=== PATIENT | female | born 1930 | race African-American/Black ===

== ENCOUNTER 2017-09-12 19:22 | Inpatient (IN) | payer MEDICARE, BC ==
[~2017-09-12] VITALS: Ht 175.3 cm; Wt 74.4 kg
[~2017-09-12 19:22] MED LIST: FERR-63 PO
[2017-09-12] MEDS ORDERED: SODIUM CHLORIDE 0.9% 1,000 ML IV ONE (20:05)
[2017-09-12 20:31] LABS: BASOPHILS % 0.6 % (0.0-2.0); EOSINOPHILS % 2.5 % (0.0-5.0); HEMATOCRIT. 34.1 % (36.0-48.0); HEMOGLOBIN. 10.7 g/dL (12.0-16.0); LYMPHOCYTES % 16.2 % (20.0-50.0); MEAN CORPUSCULAR HEMOGLOBIN 24.8 pg (28.0-32.0); MEAN PLATELET VOLUME 8.3 fl (7.4-10.4); MONOCYTES % 14.8 % (2.0-8.0); NEUTROPHILS % 65.9 % (40.0-76.0); PLATELET 260 x1000/uL (130-400); RED BLOOD CELL COUNT 4.33 mill/uL (4.2-5.4); RED CELL DISTRIBUTION WIDTH 15.5 % (11.6-14.6)
[2017-09-12 20:35] LABS: PROTHROMBIN TIME 10.9 sec (9.4-11.6)
[2017-09-12 20:41] LABS: CHLORIDE 111 mEq/L (98-107)
[2017-09-12 21:47] LABS: CLARITY URINE CLOUDY (CLEAR); COLOR URINE YELLOW (YELLOW); KETONES URINE NEGATIVE (NEGATIVE); LEUKOCYTE ESTERASE URINE 3+ (NEGATIVE); NITRITE URINE POSITIVE (NEGATIVE); OCCULT BLOOD URINE 1+ (NEGATIVE); PROTEIN URINE 1+ (NEGATIVE)
[2017-09-13] VITALS (7 sets, daily range): BP systolic 130–169; BP diastolic 48–71
[2017-09-13] MEDS ORDERED: CEFTRIAXONE 1 G PREMIX 50 ML IV ONE
[2017-09-13] MEDS ORDERED: SODIUM CHLORIDE 0.9% 1,000 ML IV SCH (00:19)
[2017-09-13] MEDS ORDERED: KETOROLAC 30MG/ML VIAL IV ONE (00:30)
[2017-09-13] MEDS ORDERED: CLONIDINE 0.1MG TABLET PO ONE (01:30)
[2017-09-13] MEDS ORDERED: ACETAMINOPHEN WITH CODEINE 300/30MG TABLET PO ONE (01:30)
[2017-09-13] MEDS ORDERED: CLONIDINE 0.1MG TABLET PO SCH (02:00)
[2017-09-13] MEDS ORDERED: ACETAMINOPHEN 325MG TABLET PO PRN (04:30)
[2017-09-13] MEDS ORDERED: CEPH500T PO (05:03)
[2017-09-13] MEDS ORDERED: ASPI-1079 PO (05:03)
[2017-09-13] MEDS ORDERED: FERR-71 PO (05:03)
[2017-09-13] MEDS ORDERED: FURO-152 PO (05:03)
[2017-09-13] MEDS ORDERED: IBUP-2028 PO (05:03)
[2017-09-13] MEDS ORDERED: POTA10TA11 PO (05:03)
[2017-09-13] MEDS ORDERED: LOSA25TA12 PO (05:03)
[2017-09-13] MEDS ORDERED: AMLO5TAB4 PO (05:03)
[2017-09-13] MEDS ORDERED: ASCO500C18 PO (05:03)
[2017-09-13] MEDS ORDERED: AMLODIPINE 5MG TABLET PO SCH (05:36)
[2017-09-13] MEDS ORDERED: LOSARTAN POTASSIUM 50 MG TABLET PO SCH (05:37)
[2017-09-13] MEDS: SODIUM CHL 0.45% + KCL 20MEQ/L 1,000 ML IV SCH ×2 (06:28→20:00)
[2017-09-13 06:34] LABS: HEMATOCRIT. 30.9 % (36.0-48.0); HEMOGLOBIN. 9.7 g/dL (12.0-16.0); MEAN CORPUSCULAR HEMOGLOBIN 24.7 pg (28.0-32.0); MEAN CORPUSCULAR VOLUME 78.6 fL (81.0-99.0); MEAN PLATELET VOLUME 8.2 fl (7.4-10.4); PLATELET 224 x1000/uL (130-400); RED BLOOD CELL COUNT 3.93 mill/uL (4.2-5.4); RED CELL DISTRIBUTION WIDTH 15.7 % (11.6-14.6)
[2017-09-13 08:00] LABS: CHLORIDE 111 mEq/L (98-107)
[2017-09-13] MEDS: ENOXAPARIN 40MG/0.4ML SYR SUBCUT SCH (09:00)
[2017-09-13 11:42] LABS: TOTAL IRON BINDING CAPACITY 294 ug/dL (250-450)
[2017-09-13] MEDS ORDERED: FERROUS SULFATE 325MG TABLET PO SCH (13:00)
[2017-09-13 14:15] LABS: PLATELET ESTIMATE NORMAL
[2017-09-13] MEDS: CEFTRIAXONE 2 G in DEXTROSE 5% WATER 50 ML IV SCH (22:58)
[2017-09-14] VITALS (7 sets, daily range): BP systolic 124–165; BP diastolic 43–65
[2017-09-14] MEDS ORDERED: CEFTRIAXONE 2 G PREMIX 50 ML IV SCH
[2017-09-14] MEDS: CLONIDINE 0.1MG TABLET PO PRN (00:33)
[2017-09-14 06:06] LABS: BASOPHILS % 0.7 % (0.0-2.0); HEMATOCRIT. 29.2 % (36.0-48.0); HEMOGLOBIN. 9.1 g/dL (12.0-16.0); LYMPHOCYTES % 20.5 % (20.0-50.0); MEAN CORPUSCULAR HEMOGLOBIN 24.3 pg (28.0-32.0); MEAN CORPUSCULAR VOLUME 77.7 fL (81.0-99.0); MEAN PLATELET VOLUME 8.1 fl (7.4-10.4); MONOCYTES % 12.9 % (2.0-8.0); NEUTROPHILS % 61.9 % (40.0-76.0); PLATELET 219 x1000/uL (130-400); RED BLOOD CELL COUNT 3.76 mill/uL (4.2-5.4); RED CELL DISTRIBUTION WIDTH 15.1 % (11.6-14.6)
[2017-09-14 06:45] LABS: CHLORIDE 109 mEq/L (98-107)
[2017-09-14] MEDS: ENOXAPARIN 40MG/0.4ML SYR SUBCUT SCH (08:55)
[2017-09-14] MEDS: ASPIRIN 81MG TABLET PO SCH (08:55)
[2017-09-14] MEDS: AMLODIPINE 5MG TABLET PO SCH ×2 (08:56→20:08)
[2017-09-14] MEDS: LOSARTAN POTASSIUM 100 MG TABLET PO SCH (08:56)
[2017-09-14] MEDS: FERROUS SULFATE 325MG TABLET PO SCH ×2 (08:56→17:48)
[2017-09-14] MEDS: DOCUSATE SODIUM 250MG CAPSULE PO SCH (08:56)
[2017-09-14] MEDS ORDERED: AMLODIPINE 5MG TABLET PO SCH (09:00)
[2017-09-14] MEDS ORDERED: FERROUS SULFATE 325MG TABLET PO SCH (09:00)
[2017-09-14] MEDS ORDERED: LOSARTAN POTASSIUM 50 MG TABLET PO SCH (09:00)
[2017-09-14] MEDS ORDERED: LEVOFLOXACIN 500MG PREMIX 100 ML IV NR (10:00)
[2017-09-14] MEDS: SODIUM CHL 0.45% + KCL 20MEQ/L 1,000 ML IV SCH (10:49)
[2017-09-14] MEDS: POTASSIUM CHLORIDE INJ 20 MEQ in SODIUM CHLORIDE 0.45% 1,000 ML IV SCH (18:30)
[2017-09-14] MEDS: CEFTRIAXONE 2 G in DEXTROSE 5% WATER 50 ML IV SCH (22:25)
[2017-09-15 04:00] VITALS: BP 152/55
[2017-09-15] MEDS: POTASSIUM CHLORIDE INJ 20 MEQ in SODIUM CHLORIDE 0.45% 1,000 ML IV SCH (06:12)
[2017-09-15 06:45] LABS: BASOPHILS % 0.5 % (0.0-2.0); EOSINOPHILS % 3.7 % (0.0-5.0); HEMATOCRIT. 30.1 % (36.0-48.0); HEMOGLOBIN. 9.7 g/dL (12.0-16.0); MEAN CORPUSCULAR HEMOGLOBIN 25.1 pg (28.0-32.0); MEAN CORPUSCULAR VOLUME 77.9 fL (81.0-99.0); MEAN PLATELET VOLUME 8.3 fl (7.4-10.4); MONOCYTES % 14.3 % (2.0-8.0); NEUTROPHILS % 60.5 % (40.0-76.0); PLATELET 222 x1000/uL (130-400); RED BLOOD CELL COUNT 3.87 mill/uL (4.2-5.4); RED CELL DISTRIBUTION WIDTH 15.4 % (11.6-14.6)
[2017-09-15 07:16] LABS: CHLORIDE 109 mEq/L (98-107)
[2017-09-15 07:48] VITALS: BP 164/50
[2017-09-15] MEDS: LOSARTAN POTASSIUM 100 MG TABLET PO SCH (08:17)
[2017-09-15] MEDS: ASPIRIN 81MG TABLET PO SCH (08:17)
[2017-09-15] MEDS: FERROUS SULFATE 325MG TABLET PO SCH ×2 (08:17→17:10)
[2017-09-15] MEDS: AMLODIPINE 5MG TABLET PO SCH ×2 (08:18→20:40)
[2017-09-15] MEDS: ENOXAPARIN 40MG/0.4ML SYR SUBCUT SCH (08:19)
[2017-09-15] MEDS: DOCUSATE SODIUM 250MG CAPSULE PO SCH (08:19)
[2017-09-15] MEDS ORDERED: LEVOFLOXACIN 250MG PREMIX 50 ML IV SCH (10:00)
[2017-09-15 12:03] VITALS: BP 155/58
[2017-09-15] MEDS ORDERED: MEROPENEM 500 MG in SODIUM CHLORIDE 0.9% 50 ML IV SCH (15:00)
[2017-09-15 16:29] VITALS: BP 166/58
[2017-09-15] MEDS ORDERED: HYDROMORPHONE HCL/PF 2MG/ML CPJ IV NR (16:48)
[2017-09-15] MEDS: CLONIDINE 0.1MG TABLET PO PRN (16:49)
[2017-09-15 20:25] VITALS: BP 169/58
[2017-09-15] MEDS: MEROPENEM 500MG in NORMAL SALINE 50ML IV SCH (21:50)
[2017-09-16 00:14] VITALS: BP 138/59
[2017-09-16] MEDS: POTASSIUM CHLORIDE INJ 20 MEQ in SODIUM CHLORIDE 0.45% 1,000 ML IV SCH ×2 (01:37→11:35)
[2017-09-16 04:00] VITALS: BP 150/61
[2017-09-16 06:13] LABS: BASOPHILS % 0.8 % (0.0-2.0); EOSINOPHILS % 4.3 % (0.0-5.0); HEMATOCRIT. 31.3 % (36.0-48.0); LYMPHOCYTES % 20.8 % (20.0-50.0); MEAN CORPUSCULAR HEMOGLOBIN 25.2 pg (28.0-32.0); MEAN CORPUSCULAR VOLUME 78.5 fL (81.0-99.0); MONOCYTES % 13.6 % (2.0-8.0); NEUTROPHILS % 60.5 % (40.0-76.0); PLATELET 235 x1000/uL (130-400); RED BLOOD CELL COUNT 3.98 mill/uL (4.2-5.4); RED CELL DISTRIBUTION WIDTH 15.4 % (11.6-14.6)
[2017-09-16 06:40] LABS: CHLORIDE 108 mEq/L (98-107)
[2017-09-16] MEDS: AMLODIPINE 5MG TABLET PO SCH ×2 (08:08→21:22)
[2017-09-16] MEDS: LOSARTAN POTASSIUM 100 MG TABLET PO SCH (08:08)
[2017-09-16 08:51] VITALS: BP 104/54
[2017-09-16] MEDS: ASPIRIN 81MG TABLET PO SCH (11:21)
[2017-09-16] MEDS: FERROUS SULFATE 325MG TABLET PO SCH ×2 (11:21→17:27)
[2017-09-16] MEDS: MEROPENEM 500MG in NORMAL SALINE 50ML IV SCH ×2 (11:22→22:22)
[2017-09-16] MEDS: DOCUSATE SODIUM 250MG CAPSULE PO SCH (11:22)
[2017-09-16] MEDS: ENOXAPARIN 40MG/0.4ML SYR SUBCUT SCH (11:22)
[2017-09-16] MEDS: LIDOCAINE HCL 4% CREAM 76GM TUBE TP SCH ×2 (11:33→17:27)
[2017-09-16] MEDS: TRAMADOL HCL/ACETAMINOPHEN 37.5/325MG TABLET PO SCH ×2 (11:33→17:27)
[2017-09-16 12:26] VITALS: BP 136/57
[2017-09-16 16:05] VITALS: BP 155/59
[2017-09-16 20:06] VITALS: BP 134/47
[2017-09-17 00:19] VITALS: BP 160/58
[2017-09-17] MEDS: POTASSIUM CHLORIDE INJ 20 MEQ in SODIUM CHLORIDE 0.45% 1,000 ML IV SCH (02:59)
[2017-09-17 04:00] VITALS: BP 154/55
[2017-09-17] MEDS: LIDOCAINE HCL 4% CREAM 76GM TUBE TP SCH (06:05)
[2017-09-17] MEDS: TRAMADOL HCL/ACETAMINOPHEN 37.5/325MG TABLET PO SCH (06:05)
[2017-09-17 08:00] VITALS: BP 165/70
[2017-09-17] MEDS ORDERED: AMLODIPINE 2.5MG TABLET PO SCH (09:00)
[2017-09-17] MEDS: ASPIRIN 81MG TABLET PO SCH (09:14)
[2017-09-17] MEDS: LOSARTAN POTASSIUM 100 MG TABLET PO SCH (09:14)
[2017-09-17] MEDS: DOCUSATE SODIUM 250MG CAPSULE PO SCH (09:15)
[2017-09-17] MEDS: FERROUS SULFATE 325MG TABLET PO SCH (09:15)
[2017-09-17] MEDS: MEROPENEM 500MG in NORMAL SALINE 50ML IV SCH (09:15)
[2017-09-17] MEDS: ENOXAPARIN 40MG/0.4ML SYR SUBCUT SCH (09:16)
[2017-09-17 12:00] VITALS: BP 138/70
[2017-09-17 15:27] VITALS: BP 138/70
== END 2017-09-17 19:00 | DRG 445 ==
LOC: ER 19:59 → 6EST 09-13 00:23 → ENRESERV 09-13 02:36 → 6WST 09-13 13:19
PROVIDERS: ADMIT Internal Medicine Geriatric Medicine; ATTEND Internal Medicine Geriatric Medicine
DX: K80.20 Calculus of gallbladder without cholecystitis without obstruction (principal); N30.00 Acute cystitis without hematuria; N17.9 Acute kidney failure, unspecified; E46 Unspecified protein-calorie malnutrition; L03.115 Cellulitis of right lower limb; E87.1 Hypo-osmolality and hyponatremia; I13.0 Hypertensive heart and chronic kidney disease with heart failure and stage 1 through stage 4 chronic kidney disease, or unspecified chronic kidney disease; I50.9 Heart failure, unspecified; L03.116 Cellulitis of left lower limb; K80.10 Calculus of gallbladder with chronic cholecystitis without obstruction; N18.9 Chronic kidney disease, unspecified; E86.0 Dehydration; B96.20 Unspecified Escherichia coli [E. coli] as the cause of diseases classified elsewhere; B96.89 Other specified bacterial agents as the cause of diseases classified elsewhere; K57.90 Diverticulosis of intestine, part unspecified, without perforation or abscess without bleeding; N20.0 Calculus of kidney; K44.9 Diaphragmatic hernia without obstruction or gangrene; D50.9 Iron deficiency anemia, unspecified; D63.8 Anemia in other chronic diseases classified elsewhere; F03.90 Unspecified dementia, unspecified severity, without behavioral disturbance, psychotic disturbance, mood disturbance, and anxiety; I73.9 Peripheral vascular disease, unspecified; K59.09 Other constipation; M19.90 Unspecified osteoarthritis, unspecified site; Z90.710 Acquired absence of both cervix and uterus; Z88.2 Allergy status to sulfonamides; Z79.899 Other long term (current) drug therapy; Z68.24 Body mass index [BMI] 24.0-24.9, adult
CPT/HCPCS: 36415; 74176; 80048; 81001; 82270; 83036; 83540; 83550; 84443; 87077; 87186; 93970; 96361; 96374; 96375; 97116; 97162; 99285; A6261; J0696; J1170; J1650; J1885; J1956; J2185; J3480; J7030; J7060; A4315

== ENCOUNTER 2018-08-27 21:24 | Inpatient (IN) | payer BC, MEDICARE ==
[~2018-08-27] VITALS: Ht 167.6 cm; Wt 74.0 kg
[~2018-08-27 21:24] MED LIST changes: +AMLO5TAB4 PO; +ASCO500C18 PO; +ASPI-1079 PO; +CEPH500T PO; +FERR-71 PO; +FURO-152 PO; +IBUP-2028 PO; +LOSA25TA12 PO; +POTA10TA11 PO
[2018-08-27] MEDS ORDERED: ONDANSETRON HCL 4MG/2ML INJ IV ONE (22:45)
[2018-08-27 23:11] LABS: HEMOGLOBIN. 7.5 g/dL (12.0-16.0); MEAN CORPUSCULAR VOLUME 64.9 fL (81.0-99.0); MEAN PLATELET VOLUME 7.5 fl (7.4-10.4); PLATELET 355 x1000/uL (130-400); RED BLOOD CELL COUNT 4.15 mill/uL (4.2-5.4); RED CELL DISTRIBUTION WIDTH 20.2 % (11.6-14.6)
[2018-08-27 23:14] LABS: CHLORIDE 112 mEq/L (98-107)
[2018-08-27 23:15] LABS: PROTHROMBIN TIME 10.5 sec (9.1-11.1)
[2018-08-27 23:22] LABS: PLATELET ESTIMATE NORMAL
[2018-08-28 01:10] LABS: CLARITY URINE TURBID (CLEAR); COLOR URINE YELLOW (YELLOW); KETONES URINE TRACE (NEGATIVE); LEUKOCYTE ESTERASE URINE 3+ (NEGATIVE); NITRITE URINE NEGATIVE (NEGATIVE); OCCULT BLOOD URINE 2+ (NEGATIVE); PROTEIN URINE 1+ (NEGATIVE); SPECIFIC GRAVITY URINE 1.019 (1.005-1.030)
[2018-08-28] MEDS ORDERED: MEROPENEM 1,000 MG in SODIUM CHLORIDE 0.9% 100 ML IV SCH (02:15)
[2018-08-28] MEDS ORDERED: ENOXAPARIN 80MG/0.8ML SYR SUBCUT SCH (03:00)
[2018-08-28] MEDS ORDERED: IPRATROPIUM/ALBUTEROL 0.5-3(2.5)MG/3ML NEB INH PRN (05:45)
[2018-08-28] MEDS ORDERED: LORAZEPAM 2MG/ML CPJ IV PRN (05:45)
[2018-08-28] MEDS ORDERED: HYDROCODONE/ACETAMINOPHEN 5/325MG TABLET PO PRN (05:45)
[2018-08-28] MEDS ORDERED: MAGNESIUM/ALUMINUM HYDROXIDE/SIMETHICONE 30ML UDC PO PRN (05:45)
[2018-08-28] MEDS ORDERED: DIPHENHYDRAMINE 50MG/ML VIAL IV PRN (05:45)
[2018-08-28] MEDS ORDERED: ONDANSETRON HCL 4MG/2ML INJ IV PRN (05:45)
[2018-08-28] MEDS ORDERED: HYDROMORPHONE HCL/PF 2MG/ML CPJ IV PRN (05:45)
[2018-08-28] MEDS ORDERED: DOCUSATE SODIUM 100MG CAPSULE PO PRN (05:45)
[2018-08-28] MEDS ORDERED: GUAIFENESIN 200MG/10ML SUGAR FREE UDC PO PRN (05:45)
[2018-08-28] MEDS ORDERED: ACETAMINOPHEN 325MG TABLET PO PRN (05:45)
[2018-08-28] MEDS ORDERED: LEVOFLOXACIN 500MG PREMIX 100 ML IV SCH ×2 (06:00)
[2018-08-28 06:52] LABS: CHLORIDE 113 mEq/L (98-107)
[2018-08-28] MEDS: SODIUM CHLORIDE 0.45% 1,000 ML IV SCH (09:02)
[2018-08-28] MEDS ORDERED: NA PHOS,M-B/NA PHOS,DI-BA ENEMA 118ML PR PRN (10:00)
[2018-08-28 10:23] VITALS: BP 153/61
[2018-08-28] MEDS: ENOXAPARIN 40MG/0.4ML SYR SUBCUT SCH (11:45)
[2018-08-28 12:00] VITALS: BP 157/53
[2018-08-28 13:09] VITALS: BP 153/61
[2018-08-28] MEDS: ASPIRIN 81MG EC TABLET PO SCH (13:33)
[2018-08-28] MEDS: CLONIDINE 0.1MG TABLET PO PRN (17:39)
[2018-08-28 20:42] VITALS: BP 129/52
[2018-08-29] VITALS (10 sets, daily range): BP systolic 98–166; BP diastolic 57–97
[2018-08-29] MEDS: LEVOFLOXACIN 250MG PREMIX 50 ML IV SCH (05:26)
[2018-08-29] MEDS: SODIUM CHLORIDE 0.45% 1,000 ML IV SCH ×3 (05:27→18:28)
[2018-08-29] MEDS ORDERED: LEVOFLOXACIN 250MG PREMIX 50 ML IV SCH (06:00)
[2018-08-29 07:54] LABS: CHLORIDE 110 mEq/L (98-107)
[2018-08-29 08:10] LABS: LDL CHOLESTEROL 54 mg/dL (5-100)
[2018-08-29 08:14] LABS: HDL CHOLESTEROL 38 mg/dL (40-59)
[2018-08-29 08:23] LABS: BASOPHILS % 1.1 % (0.0-2.0); EOSINOPHILS % 2.6 % (0.0-5.0); HEMOGLOBIN. 7.8 g/dL (12.0-16.0); LYMPHOCYTES % 23.3 % (20.0-50.0); MEAN CORPUSCULAR HEMOGLOBIN 18.7 pg (28.0-32.0); MEAN PLATELET VOLUME 7.7 fl (7.4-10.4); MONOCYTES % 12.5 % (2.0-8.0); NEUTROPHILS % 60.5 % (40.0-76.0); PLATELET 283 x1000/uL (130-400); RED BLOOD CELL COUNT 4.18 mill/uL (4.2-5.4)
[2018-08-29] MEDS: ASPIRIN 81MG EC TABLET PO SCH (09:00)
[2018-08-29] MEDS: CLONIDINE 0.1MG TABLET PO PRN (12:55)
[2018-08-29] MEDS: ENOXAPARIN 40MG/0.4ML SYR SUBCUT SCH (12:56)
[2018-08-30] VITALS: BP 137/43
[2018-08-30 04:00] VITALS: BP 130/50
[2018-08-30] MEDS: LEVOFLOXACIN 250MG PREMIX 50 ML IV SCH (06:09)
[2018-08-30 07:43] VITALS: BP 149/73
[2018-08-30 08:28] LABS: HEMOGLOBIN. 8.2 g/dL (12.0-16.0); MEAN CORPUSCULAR HEMOGLOBIN 18.8 pg (28.0-32.0); MEAN CORPUSCULAR VOLUME 68.6 fL (81.0-99.0); MEAN PLATELET VOLUME 8.5 fl (7.4-10.4); PLATELET 248 x1000/uL (130-400); RED BLOOD CELL COUNT 4.38 mill/uL (4.2-5.4); RED CELL DISTRIBUTION WIDTH 22.2 % (11.6-14.6)
[2018-08-30 08:34] LABS: CHLORIDE 110 mEq/L (98-107)
[2018-08-30] MEDS: ENOXAPARIN 40MG/0.4ML SYR SUBCUT SCH ×2 (09:49→10:51)
[2018-08-30 11:26] LABS: PLATELET ESTIMATE NORMAL
[2018-08-30 12:00] VITALS: BP 155/54
[2018-08-30 16:00] VITALS: BP 149/73
[2018-08-30 20:00] VITALS: BP 130/60
[2018-08-30] MEDS: SODIUM CHLORIDE 0.45% 1,000 ML IV SCH (23:21)
[2018-08-31] VITALS (11 sets, daily range): BP systolic 137–205; BP diastolic 46–87
[2018-08-31] MEDS: LEVOFLOXACIN 250MG PREMIX 50 ML IV SCH (06:08)
[2018-08-31] MEDS ORDERED: SODIUM BICARBONATE 4% (2.4MEQ) 5ML VIAL IV ONE (10:08)
[2018-08-31] MEDS ORDERED: LIDOCAINE HCL 1% 20ML VIAL (Pyxis) INJ ONE (10:08)
[2018-08-31] MEDS ORDERED: IOHEXOL-300 100 ML BOTTLE ONE (10:09)
[2018-08-31] MEDS ORDERED: ONDANSETRON HCL 4MG/2ML INJ IV ONE (10:45)
[2018-08-31] MEDS ORDERED: ONDANSETRON HCL 4MG/2ML INJ ONE (10:48)
[2018-08-31] MEDS: ENOXAPARIN 40MG/0.4ML SYR SUBCUT SCH (11:57)
[2018-09-01] VITALS: BP 181/73
[2018-09-01 04:00] VITALS: BP 165/60
[2018-09-01] MEDS: LEVOFLOXACIN 250MG PREMIX 50 ML IV SCH (05:05)
[2018-09-01] MEDS: SODIUM CHLORIDE 0.45% 1,000 ML IV SCH (05:13)
[2018-09-01] MEDS: CLONIDINE 0.1MG TABLET PO PRN (05:54)
[2018-09-01 07:05] LABS: CHLORIDE 109 mEq/L (98-107)
[2018-09-01 07:08] LABS: HEMOGLOBIN. 8.7 g/dL (12.0-16.0); MEAN CORPUSCULAR VOLUME 67.7 fL (81.0-99.0); MEAN PLATELET VOLUME 8.7 fl (7.4-10.4); PLATELET 274 x1000/uL (130-400); RED BLOOD CELL COUNT 4.58 mill/uL (4.2-5.4); RED CELL DISTRIBUTION WIDTH 22.3 % (11.6-14.6)
[2018-09-01 08:00] VITALS: BP 151/56
[2018-09-01] MEDS: ENOXAPARIN 40MG/0.4ML SYR SUBCUT SCH (11:05)
[2018-09-01 12:00] VITALS: BP 113/62
[2018-09-01 13:45] LABS: PLATELET ESTIMATE NORMAL
[2018-09-01 16:00] VITALS: BP 166/68
[2018-09-01 19:52] VITALS: BP 172/55
[2018-09-02] MEDS: SODIUM CHLORIDE 0.45% 1,000 ML IV SCH (06:05)
[2018-09-02 08:00] VITALS: BP 176/64
[2018-09-02] MEDS: CLONIDINE 0.1MG TABLET PO PRN (08:21)
[2018-09-02 12:00] VITALS: BP 107/62
[2018-09-02] MEDS: LEVOFLOXACIN 250MG TABLET PO SCH (12:51)
[2018-09-02] MEDS: ENOXAPARIN 40MG/0.4ML SYR SUBCUT SCH (12:52)
[2018-09-02 16:00] VITALS: BP 144/56
[2018-09-02 20:00] VITALS: BP 131/45
[2018-09-03] VITALS (8 sets, daily range): BP systolic 105–188; BP diastolic 62–84
[2018-09-03] MEDS: ENOXAPARIN 40MG/0.4ML SYR SUBCUT SCH (10:53)
[2018-09-03] MEDS: LEVOFLOXACIN 250MG TABLET PO SCH (10:53)
== END 2018-09-03 18:12 | disposition home health service (06) | DRG 673 ==
LOC: ER 21:24 → EDBEDREQ 08-28 02:32 → 6WST 08-28 03:11 → EDBEDREQ 08-28 03:30 → EDBEDREQTM 08-28 03:30 → ENRESERV 08-28 08:05
PROVIDERS: ADMIT Internal Medicine; ATTEND Internal Medicine
PROC: 06H03DZ Insertion of Intraluminal Device into Inferior Vena Cava, Percutaneous Approach (ICD-10-PCS; principal; 2018-08-31)
DX: N39.0 Urinary tract infection, site not specified (principal); E43 Unspecified severe protein-calorie malnutrition; I82.412 Acute embolism and thrombosis of left femoral vein; E87.0 Hyperosmolality and hypernatremia; E87.2 Acidosis; R65.10 Systemic inflammatory response syndrome (SIRS) of non-infectious origin without acute organ dysfunction; I82.432 Acute embolism and thrombosis of left popliteal vein; D64.9 Anemia, unspecified; E78.5 Hyperlipidemia, unspecified; E86.0 Dehydration; F03.90 Unspecified dementia, unspecified severity, without behavioral disturbance, psychotic disturbance, mood disturbance, and anxiety; I11.0 Hypertensive heart disease with heart failure; I25.10 Atherosclerotic heart disease of native coronary artery without angina pectoris; I50.9 Heart failure, unspecified; K57.90 Diverticulosis of intestine, part unspecified, without perforation or abscess without bleeding; Z79.82 Long term (current) use of aspirin; Z87.440 Personal history of urinary (tract) infections; Z68.26 Body mass index [BMI] 26.0-26.9, adult; Z88.2 Allergy status to sulfonamides; Z90.710 Acquired absence of both cervix and uterus
CPT/HCPCS: 36415; 37191; 71045; 74176; 80048; 80061; 83605; 83880; 84484; 86850; 86900; 86920; 93306; 93970; 96365; 96372; 96375; 99285; A6261; C1769; C1880; J1644; J1650; J1956; J2185; J2405; J3490; J7050; P9016; Q9967